=== PATIENT | male | born 1965 | race Caucasian/White ===

== ENCOUNTER → 2018-08-12 | Outpatient (REF) | payer BC ==
[2018-08-12 14:08] LABS: BASO # 0.1 10^3/uL (0.0-0.2); BASO % 1.2 % (0.0-1.0); EOS # 1.2 10^3/uL (0.0-0.50); EOS % 12.8 % (0.0-3.0); HEMATOCRIT 54.3 % (42.0-52.0); HEMOGLOBIN 18.1 g/dl (13.5-17.5); LYMPH # 1.9 10^3/uL (1.5-4.5); LYMPH % 20.6 % (24.0-44.0); MEAN CORPUSCULAR HEMOGLOBIN 30.4 pg (27.0-33.0); MEAN CORPUSCULAR HGB CONC 33.3 g/dl (32.0-36.5); MEAN CORPUSCULAR VOLUME 91.3 fl (80.0-96.0); MONO # 0.8 10^3/uL (0.0-0.8); MONO % 8.5 % (0.0-5.0); NEUTROPHILS # 5.1 10^3/uL (1.8-7.7); NEUTROPHILS % 56.6 % (36.0-66.0); PLATELET COUNT, AUTOMATED 296 10^3/uL (150-450); RED BLOOD COUNT 5.95 10^6/uL (4.30-6.10)
[2018-08-12 14:09] LABS: APPEARANCE, URINE CLEAR (CLEAR); BACTERIA, URINE AUTO NEGATIVE (NEGATIVE); BILIRUBIN, URINE AUTO NEGATIVE (NEGATIVE); BLOOD, URINE BLOOD 1+ (NEGATIVE); COLOR, URINE YELLOW (YELLOW); GLUCOSE, URINE (UA) AUTO NEGATIVE (NEGATIVE); KETONE, URINE AUTO NEGATIVE (NEGATIVE); LEUKOCYTE ESTERASE, URINE AUTO NEGATIVE (NEGATIVE); NITRITE, URINE AUTO NEGATIVE (NEGATIVE); PROTEIN, URINE AUTO NEGATIVE (NEGATIVE); RBC, URINE AUTO 3 /HPF (0-3); SPECIFIC GRAVITY URINE AUTO 1.011 (1.002-1.035); SQUAMOUS EPITHELIAL CELL UR AU 0 /HPF (0-6); UROBILINOGEN, URINE AUTO 0.2 mg/dL (0.0-2.0); WBC, URINE AUTO 0 /HPF (0-3)
[2018-08-12 17:00] LABS: HEMOGLOBIN A1c 5.7 %
[2018-08-12 17:25] LABS: CREATININE, URINE 40.7 MG/DL; MALB URINE SIEMENS 5.5 MG/L; MAU/CREAT RATIO 13.5 MCG/MG (0.0-30.0)
[2018-08-12 18:53] LABS: ALBUMIN 3.8 GM/DL (3.2-5.2); ALT/SGPT 22 U/L (12-78); BILIRUBIN,TOTAL 0.6 MG/DL (0.2-1.0); BLOOD UREA NITROGEN 18 MG/DL (7-18); CALCIUM LEVEL 8.9 MG/DL (8.5-10.1); CARBON DIOXIDE LEVEL 27 MEQ/L (21-32); CHLORIDE LEVEL 105 MEQ/L (98-107); CHOLESTEROL LEVEL 156 MG/DL (<200); CREATININE FOR GFR 0.76 MG/DL (0.70-1.30); GLOMERULAR FILTRATION RATE > 60.0 (>56); GLUCOSE, FASTING 92 MG/DL (70-100); HDL CHOLESTEROL 39 MG/DL (>40); LDL CHOLESTEROL 96 MG/DL (<100); NON-HDL-C 117 MG/DL; POTASSIUM SERUM 4.6 MEQ/L (3.5-5.1); SODIUM LEVEL 137 MEQ/L (136-145); THYROID STIMULATING HORMONE 0.969 uIU/ML (0.358-3.740); TOTAL PROTEIN 7.5 GM/DL (6.4-8.2); TRIGLYCERIDES LEVEL 107 MG/DL (<150)
== END ==
LOC: M SFHCPLAZ 10:11
PROVIDERS: ATTEND Family Medicine
DX: Z12.5 Encounter for screening for malignant neoplasm of prostate (principal); E78.2 Mixed hyperlipidemia; I10 Essential (primary) hypertension; E66.9 Obesity, unspecified
CPT/HCPCS: 36415; 80053; 80061; 81001; 82043; 83036; 83525; 84439; 84443; 85025; G0103

== ENCOUNTER → 2018-08-21 | Outpatient (CLI) | payer BC ==
[~2018-08-21] MED LIST: ISOVUE-370 76% 100ML VIAL (Q9967) As Ordered ONE
--- NOTE | 2018-08-21 17:32 | REP ---
Clinical: Chronic cough. Technique: Axial contrast enhanced images from the lung bases to the pubic symphysis using 100 ml Isovue 370 intravenous contrast material with coronal and sagittal re-formations. Findings: There is a large presumably primary neoplastic lesion in the right lower lobe measuring greater than 9.8 x 6.3 x 8.6 cm with heterogeneous enhancement and suspected large areas of central necrosis. Severe mediastinal and bilateral hilar adenopathy is appreciated with conglomerate subcarinal lymph nodes measuring greater than 6.4 x 3.9 x 4.5 cm. No effusion. No pneumothorax. Thoracic aorta and pulmonary vasculature appear relatively normal although mass effect involving the second order pulmonary vessels at the right hilum cannot be excluded. The heart appears normal. A small nonspecific pericardial effusion is noted. Visualized portions of the upper abdomen demonstrates normal bilateral adrenal glands and 9 mm hypodensity at the dome of the liver which is nonspecific. The surrounding musculoskeletal structures are intact. Impression: Large right lower lobe lung mass with extensive mediastinal and hilar adenopathy. Electronically Signed by Miguel Ángel Callaway MD 08/21/2018 05:23 P
== END ==
LOC: M RAD 16:44
PROVIDERS: ATTEND Family Medicine
DX: R05 Cough (principal); R91.8 Other nonspecific abnormal finding of lung field; I31.3 Pericardial effusion (noninflammatory)
CPT/HCPCS: 71260; Q9967

== ENCOUNTER → 2018-08-30 | Outpatient (REF) | payer BC ==
[2018-08-30 18:42] LABS: BASO # 0.1 10^3/uL (0.0-0.2); BASO % 1.1 % (0.0-1.0); EOS # 1.5 10^3/uL (0.0-0.50); HEMATOCRIT 48.2 % (42.0-52.0); HEMOGLOBIN 16.3 g/dl (13.5-17.5); LYMPH # 1.9 10^3/uL (1.5-4.5); LYMPH % 19.8 % (24.0-44.0); MEAN CORPUSCULAR HEMOGLOBIN 29.6 pg (27.0-33.0); MEAN CORPUSCULAR HGB CONC 33.8 g/dl (32.0-36.5); MEAN CORPUSCULAR VOLUME 87.5 fl (80.0-96.0); MONO # 0.8 10^3/uL (0.0-0.8); NEUTROPHILS # 5.2 10^3/uL (1.8-7.7); NEUTROPHILS % 54.6 % (36.0-66.0); PLATELET COUNT, AUTOMATED 309 10^3/uL (150-450); RED BLOOD COUNT 5.51 10^6/uL (4.30-6.10); WHITE BLOOD COUNT 9.6 10^3/uL (4.0-10.0)
[2018-08-30 19:00] LABS: INR 0.95; PARTIAL THROMBOPLASTIN TIME 30.9 SECONDS (25.4-37.6); PROTHROMBIN TIME 12.8 SECONDS (12.1-14.4)
== END ==
LOC: M SFHCPLAZ 14:54
PROVIDERS: ATTEND Family Medicine
DX: R05 Cough (principal)

== ENCOUNTER → 2018-09-06 | Outpatient (CLI) | payer BC ==
[~2018-09-06] MED LIST changes: +ACET-683 PO; +CHAN1PAK13 PO; -ISOVUE-370 76% 100ML VIAL (Q9967) As Ordered ONE; +LIDOCAINE 1% MDV 20ML VIAL As Ordered ONE; +MOTR200T44 PO; +TELM1TAB33 PO
--- NOTE | 2018-09-06 10:01 | REP ---
PA chest x-ray: Single view. History: Post needle biopsy right lower lobe mass under CT guidance. Findings: There is no evidence of pneumothorax or hydrothorax. The large right lower lobe mass is again seen. There is bilateral hilar and right mediastinal adenopathy apparent. Impression: No complication is identified. Electronically Signed by Terry Saldana MD 09/06/2018 09:52 A
--- NOTE | 2018-09-06 15:07 | REP ---
CT-guided right lower lobe lung biopsy The procedure was performed under the direct supervision of Dr. Saldana. The patient has a history of a large necrotic right lower lobe lung mass seen on a previous PET scan dated 09/04/2018. The risks and benefits of the procedure were explained to the patient and informed consent was obtained. The right lower lobe lung mass was localized using CT guidance. The skin was prepped and draped in a sterile fashion. 1% lidocaine was used as a local anesthetic. Using CT guidance 19/20 gauge coaxial needle biopsy system was inserted and advanced into the mass. Four core biopsy samples were obtained and sent to lab. The patient tolerated the procedure well and there were no immediate complications. After the appropriate amount of monitored convalescence the patient was discharged from the department. Reviewed by FRANDY Robertson 09/06/2018 01:23 P Electronically Signed by Terry Saldana MD 09/06/2018 02:58 P
== END ==
LOC: M RADPRO 08:29
PROVIDERS: ATTEND Family Medicine
DX: R59.0 Localized enlarged lymph nodes (principal); C34.90 Malignant neoplasm of unspecified part of unspecified bronchus or lung

== ENCOUNTER → 2019-03-28 | Outpatient (CLI) | payer BC ==
[~2019-03-28] MED LIST changes: -LIDOCAINE 1% MDV 20ML VIAL As Ordered ONE
[2019-03-28 19:01] LABS: BASO % 0.5 % (0.0-1.0); EOS # 0.1 10^3/uL (0.0-0.5); EOS % 4.4 % (0.0-3.0); HEMATOCRIT 32.9 % (42.0-52.0); HEMOGLOBIN 11.2 g/dl (13.5-17.5); LYMPH # 0.8 10^3/uL (1.5-5.0); LYMPH % 36.8 % (24.0-44.0); MEAN CORPUSCULAR HEMOGLOBIN 32.9 pg (27.0-33.0); MEAN CORPUSCULAR VOLUME 96.8 fl (80.0-96.0); MONO # 0.1 10^3/uL (0.0-0.8); MONO % 6.9 % (0.0-5.0); NEUTROPHILS % 50.4 % (36.0-66.0); PLATELET COUNT, AUTOMATED 155 10^3/uL (150-450)
--- NOTE | 2019-03-28 19:13 | REP ---
Chest x-ray: Two views. History: Acute pneumonia. Comparison study: September 06, 2018. Findings: There is progressive pleuroparenchymal opacity in the right lower thorax with interval development of right pleural effusion blunting the lateral pleural angle and pleural thickening along the right lateral chest wall. No focal infiltrate is seen. Left lung remains clear. Pleural angles are sharp on the left. Heart is not enlarged. Impression: Progressive pleuroparenchymal opacity right base. New right pleural effusion. Some improvement noted in the mediastinal and hilar adenopathy since the September 06, 2018 study. Electronically Signed by Terry Saldana MD 03/28/2019 07:38 P
[2019-03-28 19:19] LABS: APPEARANCE, URINE HAZY (CLEAR); BACTERIA, URINE AUTO NEGATIVE (NEGATIVE); BILIRUBIN, URINE AUTO NEGATIVE (NEGATIVE); BLOOD, URINE BLOOD 1+ (NEGATIVE); COLOR, URINE YELLOW (YELLOW); GLUCOSE, URINE (UA) AUTO NEGATIVE (NEGATIVE); KETONE, URINE AUTO NEGATIVE (NEGATIVE); LEUKOCYTE ESTERASE, URINE AUTO NEGATIVE (NEGATIVE); MUCUS, URINE SMALL (NEGATIVE); NITRITE, URINE AUTO NEGATIVE (NEGATIVE); PROTEIN, URINE AUTO 1+ mg/dL (NEGATIVE); RBC, URINE AUTO 2 /HPF (0-3); SPECIFIC GRAVITY URINE AUTO 1.016 (1.002-1.035); SQUAMOUS EPITHELIAL CELL UR AU 0 /HPF (0-6); TRANSITIONAL EPITHELIAL AUTO 1 /HPF; UROBILINOGEN, URINE AUTO 0.2 mg/dL (0.0-2.0); WBC, URINE AUTO 4 /HPF (0-3)
[2019-03-28 19:23] LABS: ALBUMIN 3.4 GM/DL (3.2-5.2); CALCIUM LEVEL 9.2 MG/DL (8.5-10.1); CREATININE FOR GFR 1.68 MG/DL (0.70-1.30); GLOMERULAR FILTRATION RATE 45.9 (>56); PHOSPHORUS LEVEL 3.3 MG/DL (2.5-4.9)
== END ==
LOC: M LAB 18:16
PROVIDERS: ATTEND Family Medicine
DX: J90 Pleural effusion, not elsewhere classified (principal); J84.10 Pulmonary fibrosis, unspecified; N17.9 Acute kidney failure, unspecified; J18.9 Pneumonia, unspecified organism
CPT/HCPCS: 36415; 71046; 80069; 81001; 85025; 87086; G0103

== ENCOUNTER → 2019-04-04 | Outpatient (REF) | payer BC ==
[2019-04-04 13:46] LABS: ALBUMIN 3.1 GM/DL (3.2-5.2); CALCIUM LEVEL 9.3 MG/DL (8.5-10.1); CREATININE FOR GFR 1.67 MG/DL (0.70-1.30); GLOMERULAR FILTRATION RATE 46.2 (>56); PHOSPHORUS LEVEL 3.1 MG/DL (2.5-4.9); POTASSIUM SERUM 4.4 MEQ/L (3.5-5.1)
[2019-04-04 13:53] LABS: BASO % 0.3 % (0.0-1.0); EOS # 0.1 10^3/uL (0.0-0.5); EOS % 0.6 % (0.0-3.0); HEMATOCRIT 30.1 % (42.0-52.0); LYMPH # 1.1 10^3/uL (1.5-5.0); LYMPH % 12.1 % (24.0-44.0); MEAN CORPUSCULAR HEMOGLOBIN 32.4 pg (27.0-33.0); MEAN CORPUSCULAR HGB CONC 33.2 g/dl (32.0-36.5); MEAN CORPUSCULAR VOLUME 97.4 fl (80.0-96.0); MONO # 1.6 10^3/uL (0.0-0.8); MONO % 18.8 % (0.0-5.0); NEUTROPHILS # 5.6 10^3/uL (1.5-8.5); NEUTROPHILS % 64.3 % (36.0-66.0); PLATELET COUNT, AUTOMATED 211 10^3/uL (150-450); RED BLOOD COUNT 3.09 10^6/uL (4.30-6.10); WHITE BLOOD COUNT 8.7 10^3/uL (4.0-10.0)
== END ==
LOC: M SFHCPLAZ 11:16
PROVIDERS: ATTEND Nurse Practitioner Family
DX: J18.9 Pneumonia, unspecified organism (principal); N17.9 Acute kidney failure, unspecified

== ENCOUNTER → 2019-04-21 | Outpatient (CLI) | payer BC ==
[2019-04-21 14:36] LABS: ALBUMIN 3.4 GM/DL (3.2-5.2); CALCIUM LEVEL 10.5 MG/DL (8.5-10.1); CREATININE FOR GFR 1.89 MG/DL (0.70-1.30); GLOMERULAR FILTRATION RATE 40.1 (>56); PHOSPHORUS LEVEL 4.8 MG/DL (2.5-4.9); POTASSIUM SERUM 4.7 MEQ/L (3.5-5.1)
== END ==
LOC: M PLALAB 09:01
PROVIDERS: ATTEND Family Medicine
DX: I10 Essential (primary) hypertension (principal)

== ENCOUNTER → 2019-04-21 | Outpatient (CLI) | payer BC ==
--- NOTE | 2019-04-22 02:33 | REP ---
Clinical: Hypertension and acute renal insufficiency. Technique: Cruz scale and color Doppler evaluation of the kidneys and renal vasculature using curved array transducer. Findings: The kidneys are essentially normal in contour size and echogenicity and reniform shape without hydronephrosis, nephrolithiasis, or renal mass lesion. Right kidney measures 11.6 x 5.4 x 4.9 cm and includes 4.3 x 3.9 x 3.5 cm exophytic benign appearing cyst. Left kidney measures 13.1 x 5.1 x 6.6 cm . Bladder is incompletely distended and grossly normal by current evaluation. Color Doppler evaluation of the renal vasculature demonstrates normal arterial wave patterns, velocities, renal aortic ratios, resistive indices and the acceleration time. No sonographic evidence for renal arterial stenosis noted. Renal vein is patent. Right Kidney: Peak arterial velocity: 71.3 cm/sec . Renal aortic ratio: 1.5 . Resistive indices: 0.56 - 0.62 . Acceleration times: 0.04 - 0.04 . Left kidney: Peak arterial velocity: 72.3 cm/sec . Renal aortic ratio: 1.5 . Resistive indices: 0.55 - 0.57 . Acceleration times: 0.04 - 0.05 . Impression: 1. A 4.3 cm exophytic benign right renal cyst is identified. Kidneys are otherwise normal in appearance. 2. No evidence for renal arterial stenosis. Electronically Signed by Miguel Ángel Callaway MD 04/22/2019 02:23 A
== END ==
LOC: M RAD 07:40
PROVIDERS: ATTEND Family Medicine
DX: N17.9 Acute kidney failure, unspecified (principal); I10 Essential (primary) hypertension

== ENCOUNTER → 2019-04-22 | Outpatient (REF) | payer BC ==
[2019-04-22 14:03] LABS: APPEARANCE, URINE CLEAR (CLEAR); BACTERIA, URINE AUTO NEGATIVE (NEGATIVE); BILIRUBIN, URINE AUTO NEGATIVE (NEGATIVE); BLOOD, URINE BLOOD NEGATIVE (NEGATIVE); COLOR, URINE STRAW (YELLOW); GLUCOSE, URINE (UA) AUTO NEGATIVE (NEGATIVE); KETONE, URINE AUTO NEGATIVE (NEGATIVE); LEUKOCYTE ESTERASE, URINE AUTO NEGATIVE (NEGATIVE); NITRITE, URINE AUTO NEGATIVE (NEGATIVE); PROTEIN, URINE AUTO NEGATIVE (NEGATIVE); RBC, URINE AUTO 1 /HPF (0-3); SPECIFIC GRAVITY URINE AUTO 1.006 (1.002-1.035); SQUAMOUS EPITHELIAL CELL UR AU 0 /HPF (0-6); UROBILINOGEN, URINE AUTO 0.2 mg/dL (0.0-2.0); WBC, URINE AUTO 0 /HPF (0-3)
[2019-04-22 14:30] LABS: CREATININE,RANDOM URINE 32.5 MG/DL; TOTAL PROTEIN,RANDOM URINE 9.1 MG/DL (0.0-12.0)
== END ==
LOC: M SFHCPLAZ 13:18
PROVIDERS: ATTEND Family Medicine
DX: I10 Essential (primary) hypertension (principal)

== ENCOUNTER → 2019-11-05 | Outpatient (REF) | payer BC | LOC: M LAB REF 12:51 | PROVIDERS: ATTEND Dermatology | DX: L98.0 Pyogenic granuloma (principal) ==

== ENCOUNTER → 2020-01-12 | Outpatient (REF) | payer BC | LOC: M LAB REF 17:14 | PROVIDERS: ATTEND Dermatology | DX: L02.91 Cutaneous abscess, unspecified (principal) ==

== ENCOUNTER → 2020-02-11 | Outpatient (REF) | payer BC | LOC: M LAB REF 14:17 | PROVIDERS: ATTEND Dermatology | DX: D49.2 Neoplasm of unspecified behavior of bone, soft tissue, and skin (principal) ==

== ENCOUNTER → 2020-03-02 | Outpatient (CLI) | payer SELFPAY | LOC: M LABCAHC 18:15 | PROVIDERS: ATTEND Pediatrics | DX: Z11.59 Encounter for screening for other viral diseases (principal) ==

== ENCOUNTER → 2020-03-16 | Outpatient (CLI) | payer SELFPAY | LOC: M LABSMTC 14:28 | PROVIDERS: ATTEND Pediatrics | DX: Z20.828 Contact with and (suspected) exposure to other viral communicable diseases (principal) ==

== ENCOUNTER → 2020-07-27 | Outpatient (REF) | payer BC | LOC: M LAB REF 13:39 | PROVIDERS: ATTEND Dermatology | DX: C79.2 Secondary malignant neoplasm of skin (principal); C34.90 Malignant neoplasm of unspecified part of unspecified bronchus or lung ==

== ENCOUNTER → 2020-08-10 | Outpatient (REF) | payer BC | LOC: M LAB REF 13:43 | PROVIDERS: ATTEND Physician Assistant | DX: L08.9 Local infection of the skin and subcutaneous tissue, unspecified (principal) ==

== ENCOUNTER → 2020-09-21 | Outpatient (REF) | payer BC, MEDICARE | LOC: M SFHCPLAZ 16:46 | PROVIDERS: ATTEND Family Medicine | DX: B00.2 Herpesviral gingivostomatitis and pharyngotonsillitis (principal) ==

== ENCOUNTER 2020-10-24 15:23 | Inpatient (IN) | payer BC, MEDICARE ==
[~2020-10-24] VITALS: Ht 172.7 cm; Wt 81.0 kg
[~2020-10-24 15:23] MED LIST changes: +AMLO2.5T3 PO; +ASPI-161 PO; +CARV12.5 PO; +ELIQ5TAB PO; +GUAN2TAB PO; +HYDR-4571 PO; +IPRA0.00 INH; +OMEP1CAP73 PO; +PROAAER10 INH; +SENN-23 PO; +TORS20TA2 PO
[2020-10-24 16:41] LABS: VENOUS BASE EXCESS 8.9 (-2.0-2.0); VENOUS HCO3 35.1 MEQ/L (23.0-27.0); VENOUS O2 SATURATION 58.6 % (60.0-80.0); VENOUS PARTIAL PRESSURE O2 33.3 mmHg (30.0-50.0); VENOUS PH 7.423 UNITS (7.330-7.430); VENOUS STANDARD HCO3 31.7 MEQ/L; VENOUS TOTAL CO2 36.8 MEQ/L (24.0-28.0)
[2020-10-24 16:48] LABS: BASO # 0.1 10^3/uL (0.0-0.2); BASO % 0.5 % (0.0-1.0); EOS # 0.7 10^3/uL (0.0-0.5); EOS % 5.1 % (0.0-3.0); HEMATOCRIT 38.6 % (42.0-52.0); HEMOGLOBIN 12.1 g/dl (13.5-17.5); LYMPH % 6.8 % (24.0-44.0); MEAN CORPUSCULAR HEMOGLOBIN 26.9 pg (27.0-33.0); MEAN CORPUSCULAR HGB CONC 31.3 g/dl (32.0-36.5); MEAN CORPUSCULAR VOLUME 85.8 fl (80.0-96.0); MONO # 0.7 10^3/uL (0.0-0.8); MONO % 5.1 % (2.0-8.0); NEUTROPHILS # 11.5 10^3/uL (1.5-8.5); NEUTROPHILS % 81.1 % (36.0-66.0); PLATELET COUNT, AUTOMATED 373 10^3/uL (150-450); WHITE BLOOD COUNT 14.2 10^3/uL (4.0-10.0)
[2020-10-24 16:59] LABS: INR 1.54; PROTHROMBIN TIME 18.9 SECONDS (12.7-14.5)
[2020-10-24 17:15] LABS: RSV AMPLIFICATION NEGATIVE (NEGATIVE)
[2020-10-24] MEDS ORDERED: FUROSEMIDE 40MG/4ML VIAL (J1940) IV ONE (17:40)
[2020-10-24] MEDS ORDERED: ISOVUE-370 76% 100ML VIAL As Ordered ONE (17:44)
[2020-10-24 17:59] LABS: ALT/SGPT 14 U/L (12-78); BILIRUBIN,DIRECT 0.3 MG/DL (0.0-0.2); BILIRUBIN,TOTAL 0.8 MG/DL (0.2-1.0); CK-MB VALUE MASS 1.6 NG/ML (<3.6); CPK CREATINE PHOSPHOKINASE 24 U/L (39-308); MB/CK RELATIVE INDEX 6.67 (< OR =4); NT-PRO BNP 1070 PG/ML (<125); TOTAL PROTEIN 5.8 GM/DL (6.4-8.2); TROPONIN I < 0.02 NG/ML (< 0.10)
[2020-10-24] MEDS ORDERED: TRAN1DIS4 TOP (18:15)
[2020-10-24] MEDS ORDERED: ELIQ5TAB PO (18:59)
[2020-10-24] MEDS ORDERED: HOME MED LIST COMPLETE! XX SCH (19:00)
[2020-10-24] MEDS ORDERED: FUROSEMIDE injection 250 MG in D5W 225 ML IV SCH (19:15)
[2020-10-24] MEDS ORDERED: BISACODYL 10 MG SUPP PR ONE (19:25)
[2020-10-24] MEDS: SIMETHICONE 80MG CHEW TAB PO SCH (21:26)
[2020-10-24 22:55] VITALS: BP 117/84
[2020-10-24] MEDS: ENOXAPARIN 80MG/0.8ML SYRINGE (J1650 PER 10MG) SC SCH (23:28)
[2020-10-24] MEDS ORDERED: hydrOXYzine 25 MG TAB PO ONE (23:30)
[2020-10-25 03:47] LABS: BASO # 0.1 10^3/uL (0.0-0.2); BASO % 0.4 % (0.0-1.0); EOS # 0.6 10^3/uL (0.0-0.5); EOS % 4.3 % (0.0-3.0); HEMOGLOBIN 11.8 g/dl (13.5-17.5); LYMPH # 0.9 10^3/uL (1.5-5.0); LYMPH % 6.7 % (24.0-44.0); MEAN CORPUSCULAR HEMOGLOBIN 26.9 pg (27.0-33.0); MEAN CORPUSCULAR HGB CONC 31.9 g/dl (32.0-36.5); MEAN CORPUSCULAR VOLUME 84.3 fl (80.0-96.0); MONO # 0.8 10^3/uL (0.0-0.8); MONO % 5.7 % (2.0-8.0); NEUTROPHILS # 11.3 10^3/uL (1.5-8.5); NEUTROPHILS % 81.1 % (36.0-66.0); PLATELET COUNT, AUTOMATED 332 10^3/uL (150-450); RED BLOOD COUNT 4.39 10^6/uL (4.30-6.10)
[2020-10-25 04:00] VITALS: BP 115/80
[2020-10-25 04:12] LABS: BLOOD UREA NITROGEN 21 MG/DL (7-18); CALCIUM LEVEL 8.6 MG/DL (8.5-10.1); CARBON DIOXIDE LEVEL 34 MEQ/L (21-32); CHLORIDE LEVEL 83 MEQ/L (98-107); CREATININE FOR GFR 1.17 MG/DL (0.70-1.30); GLOMERULAR FILTRATION RATE > 60.0 (>56); GLUCOSE, FASTING 128 MG/DL (70-100); POTASSIUM SERUM 3.9 MEQ/L (3.5-5.1); SODIUM LEVEL 127 MEQ/L (136-145)
[2020-10-25] MEDS: ENOXAPARIN 80MG/0.8ML SYRINGE (J1650 PER 10MG) SC SCH ×2 (08:00→19:59)
[2020-10-25 08:04] VITALS: BP 111/80
[2020-10-25] MEDS: ASPIRIN 81MG ENTERIC TABLET PO SCH (10:01)
[2020-10-25] MEDS: OMEPRAZOLE 20 MG CAP PO SCH (10:01)
[2020-10-25] MEDS: SIMETHICONE 80MG CHEW TAB PO SCH ×3 (10:01→19:59)
[2020-10-25 12:32] VITALS: BP 121/91
[2020-10-25 17:11] LABS: SPEC. GRAVITY BODY FLUIDS 1.023 (NOT ESTABLISHED)
[2020-10-25 17:16] LABS: SOURCE, BODY FLUID ALBUMIN ASCITES
[2020-10-25 17:22] LABS: APPEARANCE, BODY FLUID TURBID (CLEAR); ASCITES FL COLOR RED (COLORLESS); SOURCE, BODY FLUID ASCITES
[2020-10-25 17:24] LABS: SOURCE, BODY FLUID GLUCOSE ASCITES; SOURCE, BODY FLUID TOT PROTEIN ASCITES; TOTAL PROTEIN, BODY FLUID 3.3 G/DL (NOT ESTABLISHED)
[2020-10-25 20:00] VITALS: BP 102/68
[2020-10-25] MEDS: FUROSEMIDE injection 250 MG in D5W 225 ML IV SCH (20:20)
[2020-10-26] VITALS: BP 110/76
[2020-10-26 04:00] VITALS: BP 112/89
[2020-10-26 04:09] LABS: BASO # 0.1 10^3/uL (0.0-0.2); BASO % 0.5 % (0.0-1.0); EOS # 0.7 10^3/uL (0.0-0.5); EOS % 6.7 % (0.0-3.0); HEMATOCRIT 35.1 % (42.0-52.0); LYMPH # 0.8 10^3/uL (1.5-5.0); LYMPH % 7.6 % (24.0-44.0); MEAN CORPUSCULAR HEMOGLOBIN 26.4 pg (27.0-33.0); MEAN CORPUSCULAR HGB CONC 31.3 g/dl (32.0-36.5); MEAN CORPUSCULAR VOLUME 84.4 fl (80.0-96.0); MONO # 0.6 10^3/uL (0.0-0.8); MONO % 5.5 % (2.0-8.0); NEUTROPHILS # 8.4 10^3/uL (1.5-8.5); NEUTROPHILS % 78.1 % (36.0-66.0); PLATELET COUNT, AUTOMATED 284 10^3/uL (150-450); RED BLOOD COUNT 4.16 10^6/uL (4.30-6.10); WHITE BLOOD COUNT 10.7 10^3/uL (4.0-10.0)
[2020-10-26 04:28] LABS: BLOOD UREA NITROGEN 24 MG/DL (7-18); CALCIUM LEVEL 8.1 MG/DL (8.5-10.1); CARBON DIOXIDE LEVEL 35 MEQ/L (21-32); CHLORIDE LEVEL 85 MEQ/L (98-107); CREATININE FOR GFR 1.22 MG/DL (0.70-1.30); GLOMERULAR FILTRATION RATE > 60.0 (>56); GLUCOSE, FASTING 121 MG/DL (70-100); POTASSIUM SERUM 3.8 MEQ/L (3.5-5.1); SODIUM LEVEL 128 MEQ/L (136-145)
[2020-10-26 08:00] VITALS: BP 106/72
[2020-10-26] MEDS: OMEPRAZOLE 20 MG CAP PO SCH (09:55)
[2020-10-26] MEDS: ENOXAPARIN 80MG/0.8ML SYRINGE (J1650 PER 10MG) SC SCH ×2 (09:55→20:00)
[2020-10-26] MEDS: SIMETHICONE 80MG CHEW TAB PO SCH ×3 (09:55→21:00)
[2020-10-26] MEDS: ASPIRIN 81MG ENTERIC TABLET PO SCH (09:56)
[2020-10-26] MEDS: NORCO, ANEXSIA 5/325MG TABLET (HYDROcodone/ACETAMINOPHEN) PO PRN (13:05)
[2020-10-26 15:09] VITALS: BP 114/62
[2020-10-26] MEDS ORDERED: MOM 30ML SUSPENSION UDC PO PRN (17:25)
[2020-10-26] MEDS: SENOKOT S TAB PO PRN (17:27)
[2020-10-26 20:00] VITALS: BP 112/81
[2020-10-26] MEDS: FUROSEMIDE injection 250 MG in D5W 225 ML IV SCH (20:59)
[2020-10-27] VITALS: BP 106/78
[2020-10-27] MEDS ORDERED: PILL CUTTER 1 EACH XX PRN (00:05)
[2020-10-27] MEDS: MORPHINE 30 MG TAB **MSIR PO PRN ×4 (00:13→21:35)
[2020-10-27 04:00] VITALS: BP 109/75
[2020-10-27 05:51] LABS: BASO % 0.3 % (0.0-1.0); EOS # 0.9 10^3/uL (0.0-0.5); EOS % 7.1 % (0.0-3.0); HEMATOCRIT 35.2 % (42.0-52.0); HEMOGLOBIN 11.1 g/dl (13.5-17.5); MEAN CORPUSCULAR HEMOGLOBIN 26.7 pg (27.0-33.0); MEAN CORPUSCULAR HGB CONC 31.5 g/dl (32.0-36.5); MEAN CORPUSCULAR VOLUME 84.8 fl (80.0-96.0); MONO # 0.8 10^3/uL (0.0-0.8); MONO % 6.7 % (2.0-8.0); NEUTROPHILS # 9.2 10^3/uL (1.5-8.5); NEUTROPHILS % 76.3 % (36.0-66.0); PLATELET COUNT, AUTOMATED 255 10^3/uL (150-450); RED BLOOD COUNT 4.15 10^6/uL (4.30-6.10)
[2020-10-27 06:10] LABS: BLOOD UREA NITROGEN 21 MG/DL (7-18); CARBON DIOXIDE LEVEL 34 MEQ/L (21-32); CHLORIDE LEVEL 82 MEQ/L (98-107); CREATININE FOR GFR 1.17 MG/DL (0.70-1.30); GLOMERULAR FILTRATION RATE > 60.0 (>56); GLUCOSE, FASTING 108 MG/DL (70-100); POTASSIUM SERUM 3.3 MEQ/L (3.5-5.1); SODIUM LEVEL 124 MEQ/L (136-145)
[2020-10-27] MEDS: NORCO, ANEXSIA 5/325MG TABLET (HYDROcodone/ACETAMINOPHEN) PO PRN ×2 (06:18→12:10)
[2020-10-27] MEDS ORDERED: POTASSIUM CHLORIDE 10MEQ SR TABLET PO ONE (06:55)
[2020-10-27 07:28] VITALS: BP 112/79
[2020-10-27] MEDS: OMEPRAZOLE 20 MG CAP PO SCH (08:09)
[2020-10-27] MEDS: SIMETHICONE 80MG CHEW TAB PO SCH ×3 (08:09→21:34)
[2020-10-27] MEDS: ENOXAPARIN 80MG/0.8ML SYRINGE (J1650 PER 10MG) SC SCH ×2 (08:09→21:36)
[2020-10-27] MEDS: ASPIRIN 81MG ENTERIC TABLET PO SCH (08:09)
[2020-10-27] MEDS ORDERED: SLF 3 ML SYR IV PRN (10:20)
[2020-10-27] MEDS ORDERED: CEFOTAXIME SOD IV SCH (11:20)
[2020-10-27] MEDS ORDERED: D5W MINI IV SCH (11:20)
[2020-10-27 11:51] VITALS: BP 107/69
[2020-10-27] MEDS: FUROSEMIDE 40MG/4ML VIAL (J1940) IV SCH ×2 (12:08→21:36)
[2020-10-27] MEDS: cefTRIAXone SOD 2 GM in D5W MINI-BAG PLUS 50 ML IV SCH (13:16)
[2020-10-27] MEDS: SLF 3 ML SYR IV SCH ×2 (14:16→21:36)
[2020-10-27] MEDS: SENOKOT S TAB PO PRN (15:26)
[2020-10-27 16:00] VITALS: BP 121/88
[2020-10-27 22:00] VITALS: BP 118/87
[2020-10-28] MEDS: NORCO, ANEXSIA 5/325MG TABLET (HYDROcodone/ACETAMINOPHEN) PO PRN ×3 (00:19→20:28)
[2020-10-28] MEDS: FUROSEMIDE 40MG/4ML VIAL (J1940) IV SCH ×3 (05:18→20:27)
[2020-10-28] MEDS: SLF 3 ML SYR IV SCH ×3 (05:20→21:15)
[2020-10-28] MEDS: MORPHINE 30 MG TAB **MSIR PO PRN (05:20)
[2020-10-28 06:00] VITALS: BP 116/86
[2020-10-28 06:07] LABS: BASO # 0.1 10^3/uL (0.0-0.2); BASO % 0.5 % (0.0-1.0); EOS # 0.9 10^3/uL (0.0-0.5); EOS % 6.5 % (0.0-3.0); HEMATOCRIT 36.3 % (42.0-52.0); HEMOGLOBIN 11.3 g/dl (13.5-17.5); LYMPH % 7.8 % (24.0-44.0); MEAN CORPUSCULAR HEMOGLOBIN 26.5 pg (27.0-33.0); MEAN CORPUSCULAR HGB CONC 31.1 g/dl (32.0-36.5); MEAN CORPUSCULAR VOLUME 85.2 fl (80.0-96.0); MONO # 0.8 10^3/uL (0.0-0.8); MONO % 5.7 % (2.0-8.0); NEUTROPHILS # 10.1 10^3/uL (1.5-8.5); NEUTROPHILS % 76.6 % (36.0-66.0); PLATELET COUNT, AUTOMATED 268 10^3/uL (150-450); RED BLOOD COUNT 4.26 10^6/uL (4.30-6.10); WHITE BLOOD COUNT 13.2 10^3/uL (4.0-10.0)
[2020-10-28 06:41] LABS: BLOOD UREA NITROGEN 22 MG/DL (7-18); CALCIUM LEVEL 8.1 MG/DL (8.5-10.1); CARBON DIOXIDE LEVEL 33 MEQ/L (21-32); CHLORIDE LEVEL 82 MEQ/L (98-107); GLOMERULAR FILTRATION RATE > 60.0 (>56); GLUCOSE, FASTING 108 MG/DL (70-100); SODIUM LEVEL 123 MEQ/L (136-145)
[2020-10-28 07:32] LABS: ALBUMIN 1.8 GM/DL (3.2-5.2); ALT/SGPT 11 U/L (12-78); BILIRUBIN,DIRECT 0.2 MG/DL (0.0-0.2); BILIRUBIN,TOTAL 0.4 MG/DL (0.2-1.0)
[2020-10-28] MEDS: ASPIRIN 81MG ENTERIC TABLET PO SCH (09:00)
[2020-10-28] MEDS: SIMETHICONE 80MG CHEW TAB PO SCH ×3 (09:00→20:27)
[2020-10-28] MEDS: OMEPRAZOLE 20 MG CAP PO SCH (09:00)
[2020-10-28] MEDS: ENOXAPARIN 80MG/0.8ML SYRINGE (J1650 PER 10MG) SC SCH ×2 (09:01→20:27)
[2020-10-28 12:45] VITALS: BP 116/84
[2020-10-28] MEDS: cefTRIAXone SOD 2 GM in D5W MINI-BAG PLUS 50 ML IV SCH (13:00)
[2020-10-28 14:00] VITALS: BP 112/76
[2020-10-28] MEDS ORDERED: SENOKOT S TAB PO SCH (20:05)
[2020-10-28 22:00] VITALS: BP 125/91
[2020-10-29] MEDS: MORPHINE 30 MG TAB **MSIR PO PRN ×5 (00:28→18:52)
[2020-10-29] MEDS: ONDANSETRON 4 MG TAB PO PRN (01:30)
[2020-10-29] MEDS: NORCO, ANEXSIA 5/325MG TABLET (HYDROcodone/ACETAMINOPHEN) PO PRN ×3 (02:50→16:36)
[2020-10-29] MEDS: FUROSEMIDE 40MG/4ML VIAL (J1940) IV SCH ×3 (04:54→20:03)
[2020-10-29 06:00] VITALS: BP 120/87
[2020-10-29] MEDS: SLF 3 ML SYR IV SCH ×3 (06:00→21:44)
[2020-10-29 06:47] LABS: BASO % 0.3 % (0.0-1.0); EOS # 0.5 10^3/uL (0.0-0.5); EOS % 3.7 % (0.0-3.0); HEMATOCRIT 34.6 % (42.0-52.0); LYMPH # 0.8 10^3/uL (1.5-5.0); LYMPH % 5.3 % (24.0-44.0); MEAN CORPUSCULAR HEMOGLOBIN 26.8 pg (27.0-33.0); MEAN CORPUSCULAR HGB CONC 31.8 g/dl (32.0-36.5); MEAN CORPUSCULAR VOLUME 84.4 fl (80.0-96.0); MONO # 0.6 10^3/uL (0.0-0.8); MONO % 4.1 % (2.0-8.0); NEUTROPHILS # 12.3 10^3/uL (1.5-8.5); NEUTROPHILS % 84.5 % (36.0-66.0); PLATELET COUNT, AUTOMATED 271 10^3/uL (150-450); WHITE BLOOD COUNT 14.5 10^3/uL (4.0-10.0)
[2020-10-29 07:14] LABS: BLOOD UREA NITROGEN 26 MG/DL (7-18); CALCIUM LEVEL 7.5 MG/DL (8.5-10.1); CARBON DIOXIDE LEVEL 31 MEQ/L (21-32); CHLORIDE LEVEL 81 MEQ/L (98-107); CREATININE FOR GFR 1.01 MG/DL (0.70-1.30); GLOMERULAR FILTRATION RATE > 60.0 (>56); GLUCOSE, FASTING 116 MG/DL (70-100); POTASSIUM SERUM 4.6 MEQ/L (3.5-5.1); SODIUM LEVEL 120 MEQ/L (136-145)
[2020-10-29] MEDS: SIMETHICONE 80MG CHEW TAB PO SCH ×3 (09:06→20:03)
[2020-10-29] MEDS: OMEPRAZOLE 20 MG CAP PO SCH (09:06)
[2020-10-29] MEDS: SENOKOT S TAB PO SCH ×2 (09:06→20:03)
[2020-10-29] MEDS ORDERED: SCOPOLAMINE 1MG TRANSDERMAL PATCH TOP PRN (10:35)
[2020-10-29] MEDS: MORPHINE 2 MG/ML 1ML VIAL (J2270) IV PRN (20:03)
[2020-10-30] MEDS: NORCO, ANEXSIA 5/325MG TABLET (HYDROcodone/ACETAMINOPHEN) PO PRN ×5 (02:12→23:40)
[2020-10-30] MEDS: FUROSEMIDE 40MG/4ML VIAL (J1940) IV SCH ×3 (04:25→19:33)
[2020-10-30] MEDS: MORPHINE 2 MG/ML 1ML VIAL (J2270) IV PRN ×5 (04:25→22:39)
[2020-10-30] MEDS: SLF 3 ML SYR IV SCH ×3 (04:58→22:01)
[2020-10-30] MEDS: SIMETHICONE 80MG CHEW TAB PO SCH ×3 (09:33→20:06)
[2020-10-30] MEDS: SENOKOT S TAB PO SCH ×2 (09:33→20:06)
[2020-10-30] MEDS: OMEPRAZOLE 20 MG CAP PO SCH (09:33)
[2020-10-30] MEDS: ONDANSETRON 4 MG TAB PO PRN ×3 (09:45→23:40)
[2020-10-30] MEDS ORDERED: CALCIUM CARBONATE 500 MG CHEW U/D PO PRN (23:25)
[2020-10-30] MEDS: LORazepam 2 MG TAB PO PRN (23:40)
[2020-10-31] MEDS: MORPHINE 2 MG/ML 1ML VIAL (J2270) IV PRN ×2 (02:19→12:31)
[2020-10-31] MEDS: FUROSEMIDE 40MG/4ML VIAL (J1940) IV SCH (03:48)
[2020-10-31] MEDS: NORCO, ANEXSIA 5/325MG TABLET (HYDROcodone/ACETAMINOPHEN) PO PRN (03:49)
[2020-10-31] MEDS: LORazepam 2 MG TAB PO PRN (03:49)
[2020-10-31] MEDS: MORPHINE 30 MG TAB **MSIR PO PRN ×2 (04:37→09:41)
[2020-10-31] MEDS: SLF 3 ML SYR IV SCH ×2 (05:31→12:32)
[2020-10-31] MEDS: SENOKOT S TAB PO SCH (09:41)
[2020-10-31] MEDS: OMEPRAZOLE 20 MG CAP PO SCH (09:41)
[2020-10-31] MEDS: SIMETHICONE 80MG CHEW TAB PO SCH ×2 (09:41→16:00)
[2020-10-31] MEDS: ONDANSETRON 4 MG TAB PO PRN (09:41)
[2020-10-31] MEDS ORDERED: HYOSCYAMINE SULFATE 0.125 MG SUBL TABLET SL PRN (11:30)
[2020-10-31] MEDS ORDERED: ATROPINE SULFATE 1% OP SOLN 2 ML BTL SL PRN (11:40)
[2020-10-31] MEDS ORDERED: LORazepam 2 MG/ML VIAL IV PRN (12:55)
[2020-10-31] MEDS ORDERED: LORazepam 2 MG/ML VIAL As Ordered ONE (13:06)
== END 2020-10-31 14:15 | disposition expired | DRG 246 ==
LOC: M ED 15:23 → MERGE 18:53 → M ED INP 18:53 → ENRESERVDT 20:45 → ENRESERVTM 20:45 → M PCU 22:56 → M MSPAV 10-27 15:54
PROVIDERS: ADMIT Internal Medicine Nephrology; ATTEND Internal Medicine
DX: K55.011 Focal (segmental) acute (reversible) ischemia of small intestine (principal); J96.00 Acute respiratory failure, unspecified whether with hypoxia or hypercapnia; I81 Portal vein thrombosis; E43 Unspecified severe protein-calorie malnutrition; J90 Pleural effusion, not elsewhere classified; R18.8 Other ascites; C79.2 Secondary malignant neoplasm of skin; C79.31 Secondary malignant neoplasm of brain; E87.2 Acidosis; E87.1 Hypo-osmolality and hyponatremia; K56.7 Ileus, unspecified; C34.90 Malignant neoplasm of unspecified part of unspecified bronchus or lung; K21.9 Gastro-esophageal reflux disease without esophagitis